=== PATIENT | female | born 1955 | race Caucasian/White ===

== ENCOUNTER → 2017-01-18 | Day surgery (SDC) | payer BC ==
[~2017-01-18] MED LIST: ACETAMINOPHEN PO; ADALAT CC PO; ADVIL200 M3 PO; ALLEGRA PO; AMBIEN PO; ASPIR-TRIN325 MG PO; ASPIRIN PO; BACTRIM DS TABL1 TA1 PO; CARVEDILOL25 MG PO; CELEXA PO; COLESTIPOL HCL11 PO; COZAAR100 MG PO; HYDROCODON-ACE1 EAC5 PO; IBUPROFEN PO; LYRICA200 MG PO; MAXZIDE-25 MG1 UDTAB; METOPROLOL SUC100 MG PO; MOTRIN400 MG PO; NAPROXEN PO; NEURONTIN800 MG PO; NORVASC PO; NORVASC10 MG PO; PANTOPRAZOLE SO40 MG PO; PHENERGAN25 MG PO; PRILOSEC PO; PROTONIX PO; SLEEP AID50 MG PO; TIZANIDINE HCL4 M1 PO; TOPAMAX PO; TOPROL XL PO; TRAZODONE; TYLOX 5/500 CAP1 CAP PO; VISTARIL50 MG PO; WELLBUTRIN SR150 MG PO; ZANAFLEX4 M1 PO
--- NOTE | ~2017-01-18 | OR ---
Unit #: [id number] #: [id number] Patient: GILDA JACKSON [id number] [address] [place], [place] [address] [id number] O MR#: [id number] NAME: GILDA JACKSON ROOM: Date of Procedure: 01/18/2017 Admission Date: 01/18/2017 Surgeon: Clifford Ann M.D. : 1955 Attending Physician: Clifford Ann M.D. Primary Care Physician: Vincent Hawk M.D. OPERATIVE REPORT PRIMARY CARE PHYSICIAN Vincent Hawk M.D. PREOPERATIVE DIAGNOSIS Colorectal cancer screening in an average-risk patient. PROCEDURE PERFORMED Colonoscopy up to cecum and terminal ileum with good prep and visualization. POSTOPERATIVE DIAGNOSIS Completely normal examination. The patient did not have any polyps nor any diverticula or hemorrhoids. RECOMMENDATIONS Repeat colonoscopy in 10 years. SEDATION USED MAC. DESCRIPTION OF PROCEDURE Following detailed explanation of potential risks and complications of a colonoscopy, namely perforation, bleeding, and complications related to sedation, the patient was brought to GI lab and laid in the left lateral decubitus position. A digital rectal examination was performed, which was normal. Lubricated tip of the Olympus video colonoscope was inserted through the anus and advanced under direct vision. The scope was advanced and passed up to sigmoid into descending colon. No diverticula were seen in this area. The scope tip was then navigated all the way up to cecum with visualization of the ileocecal valve and the appendiceal orifice. Preparation was excellent with good visualization and photodocumentation was obtained. Last several inches of terminal ileum also visualized after intubation of the ileocecal valve and appeared normal. Successive segments of the colonic mucosa were examined upon withdrawal and appeared unremarkable. There being no polyps, mass lesions, AVMs, or diverticula. The patient did not have any hemorrhoids at anal verge. The scope was then withdrawn. The patient returned to the recovery area. She tolerated the procedure without any postprocedure complications. Dictated by... Clifford Ann M.D. Unit #: [id number] #: [id number] Patient: GILDA JACKSON LOGAN/miah TD: 01/19/2017 02:30 JOB #: [id number] OPERATIVE REPORT X Clifford Ann MD PROCEDURE OPERATIVE NOTE
== END | disposition home or self-care (01) ==
LOC: COPS 09:35
DX: Z12.11 Encounter for screening for malignant neoplasm of colon (principal); I10 Essential (primary) hypertension; M19.90 Unspecified osteoarthritis, unspecified site; F17.210 Nicotine dependence, cigarettes, uncomplicated; Z87.01 Personal history of pneumonia (recurrent); Z88.8 Allergy status to other drugs, medicaments and biological substances; Z79.899 Other long term (current) drug therapy; Z90.710 Acquired absence of both cervix and uterus; Z90.89 Acquired absence of other organs; Z98.890 Other specified postprocedural states
CPT/HCPCS: J2250

== ENCOUNTER → 2017-03-10 | Outpatient (CLI) | payer BC ==
--- NOTE | ~2017-03-10 | US85 ---
[facility] A Service of [facility] RADIOLOGY TEXT RESULTS PATIENT: GILDA JACKSON LOCATION: CNIV : 55 UNIT #: [id number] AGE: [address]: Gus De Paz MD SEX: F ORDER DR: [id number] [facility] [address] [place], [place] [address] [id number] O MR#: [id number] Acc #: [id number] NAME: GILDA JACKSON : 1955 SEX: F STUDY DATE/TIME: 03/10/2017 14:27 UNIT: CNIV ROOM: STUDY DESCRIPTION: [facility] [place] [place] [employer] Attending Physician: Gus De Paz M.D. Referring Physician: Gus De Paz M.D. Ordering Physician: Gus De Paz M.D. Primary Care Physician: Vincent Hawk M.D. MEDICAL IMAGING REPORT This report is preliminary unless electronic signature is present EXAM Left lower extremity venous Doppler INDICATIONS Fall 3 weeks ago with severe lower leg bruising, pain, and swelling for the past 3 weeks. PROCEDURE Cristina-scale and color Doppler spectral imaging deep veins of the left leg. COMPARISON None FINDINGS Deep veins left leg compress normally, show normal color Doppler and spectral characteristics. There is a complex collection, soft tissues of the lateral left leg, measuring 7.7 x 4.3 x 7.7 cm. IMPRESSION 1. Hematoma in the lateral left leg. 2. No evidence for DVT. Dictated by... Braxton Gayle M.D. THIS IS AN ELECTRONICALLY VERIFIED REPORT Braxton Gayle M.D. at 03/13/2017 9:45 AM ZOLTAN/lila TD: 03/10/2017 16:26 JOB #: [id number] [facility] A Service of [facility] RADIOLOGY TEXT RESULTS PATIENT: GILDA JACKSON LOCATION: CNIV : 55 UNIT #: [id number] AGE: [address]: Gus De Paz MD SEX: F ORDER DR: MEDICAL IMAGING REPORT Page 1 of 1 COPY
== END | disposition home or self-care (01) ==
LOC: CNIV 14:07
DX: S80.12XA Contusion of left lower leg, initial encounter (principal); M79.89 Other specified soft tissue disorders
CPT/HCPCS: 93971